=== PATIENT | female | born 1950 ===

== ENCOUNTER 2023-02-27 13:08 | Emergency (ER) | payer MEDICARE ==
[2023-02-27 13:26] VITALS: BP 165/94; PULSE 62; RESP 20; TEMP 98.2
--- NOTE | 2023-02-27 15:22 | ED ---
General Adult HPI - General Chief complaint: Recheck/Abnormal Lab/Rx Stated complaint: foreign object Time Seen by Provider: 02/27/23 14:40 Source: patient, RN notes reviewed, old records reviewed Mode of arrival: ambulatory Limitations: no limitations - History of Present Illness Initial comments: This is a 72-year-old female who presents emergency department stating she attempted to swallow and magnesium pill at 11:00 this morning and it had a difficult time going down. Patient states ever since then she has a sensation anytime she swallows anything of some pain in the little bit of peristalsis in the distal aspect of her esophagus and it eventually subsides. Patient states that she thought the pill dissolve but she doesn't know why she continues to get the sensation. Patient states she is able to drink water and diet Coke without a problem. Patient has yet to attempt food. Patient denies any chest pain. Patient denies any difficulty breathing or shortness of breath. Patient states she's had an issue for quite a while with swallowing big pills. - Related Data Allergies Allergy/AdvReac Type Severity Reaction Status Date / Time clindamycin Allergy Rash/Hives Verified 02/27/23 13:26 Review of Systems ROS Statement: Those systems with pertinent positive or pertinent negative responses have been documented in the HPI. ROS Other: All systems not noted in ROS Statement are negative. Past Medical History Past Medical History: Hypertension Additional Past Medical History / Comment(s): Heart murmur. History of Any Multi-Drug Resistant Organisms: None Reported Past Surgical History: Orthopedic Surgery, Tonsillectomy Additional Past Surgical History / Comment(s): Eye, D & C Past Psychological History: No Psychological Hx Reported Smoking Status: Never smoker Past Alcohol Use History: Occasional Past Drug Use History: None Reported General Exam - General Exam Comments Initial Comments: GENERAL: Patient is well-developed and well-nourished. Patient is nontoxic and well- hydrated and is in mild distress. PULMONARY: Unlabored respirations. Good breath sounds bilaterally. No audible rales rhonchi or wheezing was noted. CARDIOVASCULAR: There is a regular rate and rhythm without any murmurs gallops or rubs. ABDOMEN: Soft and nontender with normal bowel sounds. SKIN: Skin is clear with no lesions or rashes and otherwise unremarkable. NEUROLOGIC: Patient is alert and oriented x3. MUSCULOSKELETAL: Normal extremities with adequate strength and full range of motion. No lower extremity swelling or edema. No calf tenderness. LYMPHATICS: No significant lymphadenopathy is noted PSYCHIATRIC: Normal psychiatric evaluation. Limitations: no limitations Course Vital Signs 02/27/23 13:23 Temperature 98.2 F Pulse Rate 62 Respiratory 20 Rate Blood Pressure 165/94 O2 Sat by Pulse 96 Oximetry Medical Decision Making - Medical Decision Making Was pt. sent in by a medical professional or institution (, SOO, [employer] PLANT HELPER, urgent care, hospital, or correction...) When possible be specific @ -No Did you speak to anyone other than the patient for history (EMS, parent, family, police, friend...)? What history was obtained from this source @ -No Did you review nursing and triage notes (agree or disagree)? Why? @ -I reviewed and agree with nursing and triage notes Were old charts reviewed (outside hosp., previous admission, EMS record, old EKG, old radiological studies, urgent care reports/EKG's, correction records)? Report findings @ -No old charts were reviewed Differential Diagnosis (chest pain, altered mental status, abdominal pain women, abdominal pain men, vaginal bleeding, weakness, fever, dyspnea, syncope, headache, dizziness, GI bleed, back pain, seizure, CVA, palpatations, mental health, musculoskeletal)? @ -not applicable EKG interpreted by me (3pts min.). @ -As above X-rays interpreted by me (1pt min.). @ -None done CT interpreted by me (1pt min.). @ -None done U/S interpreted by me (1pt. min.). @ -None done What testing was considered but not performed or refused? (CT, X-rays, U/S, labs)? Why? @ -None What meds were considered but not given or refused? Why? @ -None Did you discuss the management of the patient with other professionals (professionals i.e. SOO Abdi, ACID PLANT HELPER, lab, RT, psych nurse, child protective services social worker, fbi investigator, teacher, custom protection officer, porter sample case)? Give summary @ -No Was smoking cessation discussed for >3mins.? @ -No Was critical care preformed (if so, how long)? @ -No Were there social determinants of health that impacted care today? How? (Homelessness, low income, unemployed, alcoholism, drug addiction, transportation, low edu. Level, literacy, decrease access to med. care, prison, rehab)? @ -No Was there de-escalation of care discussed even if they declined (Discuss DNR or withdrawal of care, Hospice)? DNR status @ -No What co-morbidities impacted this encounter? (DM, HTN, Smoking, COPD, CAD, Cancer, CVA, ARF, Chemo, Hep., AIDS, mental health diagnosis, sleep apnea, morbid obesity)? @ -None Was patient admitted / discharged? Hospital course, mention meds given and route, prescriptions, significant lab abnormalities, going to OR and other pertinent info. @ -Patient was able to drink liquids and I told that we had no GI and be able to scope her at this time and after we had a lengthy conversation she determined that she would just go home and see how things go and if she needs to show come back at a later date. Undiagnosed new problem with uncertain prognosis? @ -No Drug Therapy requiring intensive monitoring for toxicity (Heparin, Nitro, Insulin, Cardizem)? @ -No Were any procedures done? @ -No Diagnosis/symptom? @ -Globus Hystericus Acute, or Chronic, or Acute on Chronic? @ -Acute Uncomplicated (without systemic symptoms) or Complicated (systemic symptoms)? @ -Uncomplicated Side effects of treatment? @ -No Exacerbation, Progression, or Severe Exacerbation? @ -No Poses a threat to life or bodily function? How? (Chest pain, USA, [place], pneumonia, PE, COPD, DKA, ARF, appy, cholecystitis, CVA, Diverticulitis, Homicidal, Suicidal, threat to staff... and all critical care pts) @ -No Disposition Clinical Impression: Globus sensation Disposition: HOME SELF-CARE Condition: Good Instructions (If sedation given, give patient instructions): Esophageal Foreign Body (ED) Is patient prescribed a controlled substance at d/c from ED?: No Referrals: Addison Mcclure MD [Primary Care Provider] - 1-2 days Time of Disposition: 15:22
== END 2023-02-27 22:07 | disposition home or self-care (01) ==
LOC: EC 13:08
DX: F45.8 Other somatoform disorders (principal); I10 Essential (primary) hypertension; Z88.8 Allergy status to other drugs, medicaments and biological substances
CPT/HCPCS: 99282

== ENCOUNTER 2025-02-02 11:48 | Observation (INO) | payer MEDICARE ==
--- NOTE | 2025-02-02 12:18 | ED ---
General Adult HPI - General Chief complaint: Arrhythmia/Palpitations Stated complaint: Cardiac issue Time Seen by Provider: 02/02/25 11:55 Source: patient, RN notes reviewed, old records reviewed Mode of arrival: ambulatory Limitations: no limitations - History of Present Illness Initial comments: This is a 74-year-old female who presented to the emergency department complaining of palpitations. Patient states she was taken off her beta-travis for high blood pressure couple weeks ago and since then she has episodes where she feels like her heart is racing. Patient states she came in today because it was consistent. Patient denies any chest pain. Patient has difficulty breathing shortness of breath. Patient denies dizziness or lightheadedn ess.Patient denies any recent fever chills or cough. Patient [place] any abdominal pain patient denies any vomiting or diarrhea - Related Data Allergies Allergy/AdvReac Type Severity Reaction Status Date / Time clindamycin Allergy Rash/Hives Verified 02/02/25 11:54 Review of Systems ROS Statement: Those systems with pertinent positive or pertinent negative responses have been documented in the HPI. ROS Other: All systems not noted in ROS Statement are negative. Past Medical History Past Medical History: Hypertension Additional Past Medical History / Comment(s): Heart murmur. History of Any Multi-Drug Resistant Organisms: None Reported Past Surgical History: Orthopedic Surgery, Tonsillectomy Additional Past Surgical History / Comment(s): Eye, D & C Past Psychological History: No Psychological Hx Reported Smoking Status: Never smoker Past Alcohol Use History: Occasional Past Drug Use History: None Reported General Exam - General Exam Comments Initial Comments: GENERAL: Patient is well-developed and well-nourished. Patient is nontoxic and well- hydrated and is in no acute distress. ENT: Neck is soft and supple. No significant lymphadenopathy is noted. Oropharynx is clear. Moist mucous membranes. Neck has full range of motion without eliciting any pain. EYES: The sclera were anicteric and conjunctiva were pink and moist. Extraocular movements were intact and pupils were equal round and reactive to light. Eyelids were unremarkable. PULMONARY: Unlabored respirations. Good breath sounds bilaterally. No audible rales rhonchi or wheezing was noted. CARDIOVASCULAR: Heart rates 170 bpm ABDOMEN: Soft and nontender with normal bowel sounds. SKIN: Skin is clear with no lesions or rashes and otherwise unremarkable. NEUROLOGIC: Patient is alert and oriented x3. Cranial nerves II through XII are grossly intact. Motor and sensory are also intact. Normal speech, volume and content. Symmetrical smile. MUSCULOSKELETAL: Normal extremities with adequate strength and full range of motion. No lower extremity swelling or edema. No calf tenderness. LYMPHATICS: No significant lymphadenopathy is noted PSYCHIATRIC: Normal psychiatric evaluation. Limitations: no limitations Course Vital Signs 02/02/25 02/02/25 02/02/25 11:52 12:10 12:30 Temperature 97.9 F Pulse Rate 170 H 158 H Pulse Rate [ 160 H Bilateral Pulse Oximetery] Respiratory 20 17 Rate Blood Pressure 141/81 139/81 O2 Sat by Pulse 98 98 Oximetry 02/02/25 02/02/25 02/02/25 13:10 13:35 13:55 Temperature Pulse Rate 73 81 79 Pulse Rate [ Bilateral Pulse Oximetery] Respiratory 16 18 18 Rate Blood Pressure 139/81 142/92 132/67 O2 Sat by Pulse 99 99 97 Oximetry Medical Decision Making - Medical Decision Making EKG is interpreted by myself. EKG shows a sinus rhythm as well as atrial flutter at a rate of 140 bpm AR interval 128 QRS is 79 QT interval is 252 QTc is 333. Patient's EKG shows no ST segment elevation or depression. Was pt. sent in by a medical professional or institution (, PA, COFOUNDER, urgent care, hospital, or assisted...) When possible be specific @ -No Did you speak to anyone other than the patient for history (EMS, parent, family, police, friend...)? What history was obtained from this source @ -No Did you review nursing and triage notes (agree or disagree)? Why? @ -I reviewed and agree with nursing and triage notes Were old charts reviewed (outside hosp., previous admission, EMS record, old EKG, old radiological studies, urgent care reports/EKG's, assisted records)? Report findings @ -No old charts were reviewed Differential Diagnosis? @ -Differential Seizure: Differential Palpitations Ventricular arrhythmias, atrial arrhythmias, myocardial infarction, anemia, thyrotoxicosis, electrolyte imbalance, hypokalemia, pulmonary embolism, pulmonary disease, drugs, alcohol, anxiety, stress.... This is not meant to be an all-inclusive list. EKG interpreted by me (3pts min.). @ -As above X-rays interpreted by me (1pt min.). @ -Chest x-ray shows no acute abnormality CT interpreted by me (1pt min.). @ -None done U/S interpreted by me (1pt. min.). @ -None done What testing was considered but not performed or refused? (CT, X-rays, U/S, labs)? Why? @ -None What meds were considered but not given or refused? Why? @ -None Did you discuss the management of the patient with other professionals (professionals i.e. , PA, COFOUNDER, lab, RT, psych nurse, social scientist, safety belt installer, teacher, hazard mitigation officer, casework manager)? Give summary @ -No Was smoking cessation discussed for >3mins.? @ -No Was critical care preformed (if so, how long)? @ -35 minutes Were there social determinants of health that impacted care today? How? (Homelessness, low income, unemployed, alcoholism, drug addiction, transportation, low edu. Level, literacy, decrease access to med. care, nursing home, rehab)? @ -No Was there de-escalation of care discussed even if they declined (Discuss DNR or withdrawal of care, Hospice)? DNR status @ -No What co-morbidities impacted this encounter? (DM, HTN, Smoking, COPD, CAD, Cancer, CVA, ARF, Chemo, Hep., AIDS, mental health diagnosis, sleep apnea, morbid obesity)? @ -None Was patient admitted / discharged? Hospital course, mention meds given and route, prescriptions, significant lab abnormalities, going to OR and other pertinent info. @ -Patient appeared to be in atrial flutter but occasionally going back to a normal sinus rhythm I started the patient on Cardizem after Cardizem bolus and put the patient on heparin she slowed down into the 80s and will be admitted to [facility] with a consult to cardiology Undiagnosed new problem with uncertain prognosis? @ -No Drug Therapy requiring intensive monitoring for toxicity (Heparin, Nitro, Insulin, Cardizem)? @ -No Were any procedures done? @ -No Diagnosis/symptom? @ -Atrial flutter with rapid ventricular response Acute, or Chronic, or Acute on Chronic? @ -Acute Uncomplicated (without systemic symptoms) or Complicated (systemic symptoms)? @ -Complicated Side effects of treatment? @ -No Exacerbation, Progression, or Severe Exacerbation? @ -No Poses a threat to life or bodily function? How? (Chest pain, [place], [place], pneumonia, PE, COPD, DKA, ARF, appy, cholecystitis, CVA, Diverticulitis, Homicidal, Suicidal, threat to staff... and all critical care pts) @ -Yes this can lead to poor perfusion and endorgan dysfunction - Lab Data Result diagrams: 02/02/25 12:24 02/02/25 12:24 Lab Results 02/02/25 02/02/25 02/02/25 Range/Units 12:24 12:24 12:24 WBC 5.33 (4.50-10.00) 10*3/uL RBC 4.95 (4.10-5.20) 10*6/uL Hgb 16.8 H (12.0-15.0) g/dL Hct 47.1 H (37.2-46.3) % MCV 95.2 (80.0-97.0) fL MCH 33.9 H (27.0-32.0) pg MCHC 35.7 (32.0-37.0) g/dL Plt Count 231 (140-440) 10*3/uL MPV 10.1 (9.5-12.2) fL Immature Gran % (Auto) 0.4 % Neutrophils % 52.1 % Lymphocytes % 33.8 % Monocytes % 11.6 % Eosinophils % 1.7 % Basophils % 0.4 % Immature Gran # 0.02 (0.00-0.04) 10*3/uL Neutrophils # 2.78 (1.80-7.70) 10*3/uL Lymphocytes # 1.80 (0.90-5.00) 10*3/uL Monocytes # 0.62 (0.20-1.00) 10*3/uL Eosinophils # 0.09 (0.04-0.35) 10*3/uL Basophils # 0.02 (0.00-0.10) 10*3/uL PT 10.3 (10.0-12.5) sec INR 0.9 (<1.2) APTT 24.2 (22.0-30.0) sec Sodium 140 (137-145) mmol/L Potassium 4.3 (3.5-5.1) mmol/L Chloride 105 (98-107) mmol/L Carbon Dioxide 24 (22-30) mmol/L Anion Gap 11 mmol/L BUN 19 H (7-17) mg/dL Creatinine 0.72 (0.52-1.04) mg/dL Est GFR (CKD-EPI)AfAm >90 (>60 ml/min/1.73 sqM) Est GFR (CKD-EPI)NonAf 84 (>60 ml/min/1.73 sqM) Glucose 109 H (74-99) mg/dL Calcium 9.8 (8.4-10.2) mg/dL Magnesium 1.9 (1.6-2.3) mg/dL Total Bilirubin 0.8 (0.2-1.3) mg/dL AST 27 (14-36) U/L ALT 26 (4-34) U/L Alkaline Phosphatase 92 (38-126) U/L Troponin I (0.000-0.034) ng/mL Total Protein 7.2 (6.3-8.2) g/dL Albumin 4.5 (3.5-5.0) g/dL TSH 0.436 L (0.465-4.680) mIU/L 02/02/25 Range/Units 12:24 WBC (4.50-10.00) 10*3/uL RBC (4.10-5.20) 10*6/uL Hgb (12.0-15.0) g/dL Hct (37.2-46.3) % MCV (80.0-97.0) fL MCH (27.0-32.0) pg MCHC (32.0-37.0) g/dL Plt Count (140-440) 10*3/uL MPV (9.5-12.2) fL Immature Gran % (Auto) % Neutrophils % % Lymphocytes % % Monocytes % % Eosinophils % % Basophils % % Immature Gran # (0.00-0.04) 10*3/uL Neutrophils # (1.80-7.70) 10*3/uL Lymphocytes # (0.90-5.00) 10*3/uL Monocytes # (0.20-1.00) 10*3/uL Eosinophils # (0.04-0.35) 10*3/uL Basophils # (0.00-0.10) 10*3/uL PT (10.0-12.5) sec INR (<1.2) APTT (22.0-30.0) sec Sodium (137-145) mmol/L Potassium (3.5-5.1) mmol/L Chloride (98-107) mmol/L Carbon Dioxide (22-30) mmol/L Anion Gap mmol/L BUN (7-17) mg/dL Creatinine (0.52-1.04) mg/dL Est GFR (CKD-EPI)AfAm (>60 ml/min/1.73 sqM) Est GFR (CKD-EPI)NonAf (>60 ml/min/1.73 sqM) Glucose (74-99) mg/dL Calcium (8.4-10.2) mg/dL Magnesium (1.6-2.3) mg/dL Total Bilirubin (0.2-1.3) mg/dL AST (14-36) U/L ALT (4-34) U/L Alkaline Phosphatase (38-126) U/L Troponin I <0.012 (0.000-0.034) ng/mL Total Protein (6.3-8.2) g/dL Albumin (3.5-5.0) g/dL TSH (0.465-4.680) mIU/L Disposition Clinical Impression: Atrial flutter with rapid ventricular response Disposition: ADMITTED IP TO THIS HOSP Referrals: Addison Mcclure MD [Primary Care Provider] - 1-2 days Time of Disposition: 14:45
[2025-02-02 12:32] LABS: Basophils # (A) 0.02 10*3/uL (0.00-0.10); Basophils % (A) 0.4 %; Eosinophils # (A) 0.09 10*3/uL (0.04-0.35); Eosinophils % (A) 1.7 %; HCT 47.1 % (37.2-46.3); HGB 16.8 g/dL (12.0-15.0); Lymphocytes # (A) 1.80 10*3/uL (0.90-5.00); Lymphocytes % (A) 33.8 %; MCH 33.9 pg (27.0-32.0); MCHC 35.7 g/dL (32.0-37.0); MCV 95.2 fL (80.0-97.0); Monocytes # (A) 0.62 10*3/uL (0.20-1.00); Monocytes % (A) 11.6 %; Neutrophils # (A) 2.78 10*3/uL (1.80-7.70); Neutrophils % (A) 52.1 %; Platelet Count 231 10*3/uL (140-440); RBC 4.95 10*6/uL (4.10-5.20); RDW 12.5 % (11.5-14.5); WBC 5.33 10*3/uL (4.50-10.00)
[2025-02-02] MEDS: SODIUM CHLORIDE 0.9% 500 ML 500 ML IV STA (12:35)
[2025-02-02] MEDS: DILTIAZEM 5 MG/ML 5 ML VIAL IVP STA (12:37)
[2025-02-02 12:43] LABS: Carbon Dioxide 24 mmol/L (22-30); Chloride 105 mmol/L (98-107); Glucose 109 mg/dL (74-99); INR 0.9 (<1.2); Partial Thromboplastin Time 24.2 sec (22.0-30.0); Potassium 4.3 mmol/L (3.5-5.1); Prothrombin Time 10.3 sec (10.0-12.5); Sodium 140 mmol/L (137-145)
[2025-02-02 12:44] LABS: ALT 26 U/L (4-34); AST 27 U/L (14-36); African American GFR (CKD) >90 (>60 ml/min/1.73 sqM); Albumin 4.5 g/dL (3.5-5.0); Alkaline Phosphatase 92 U/L (38-126); Anion Gap 11 mmol/L; Blood Urea Nitrogen 19 mg/dL (7-17); Calcium 9.8 mg/dL (8.4-10.2); Magnesium 1.9 mg/dL (1.6-2.3); Non-African American GFR(CKD) 84 (>60 ml/min/1.73 sqM); Total Protein 7.2 g/dL (6.3-8.2)
[2025-02-02] MEDS: DILTIAZEM 125 MG in DEXTROSE 5% IN WATER 100 ML IV SCH (12:52)
[2025-02-02] MEDS: HEPARIN SODIUM 1,000 UN/ML (10ML VL) IV ONE (13:01)
[2025-02-02] MEDS: HEPARIN SOD,PORK IN 0.45% NACL 25,000 UNIT in 0.45% NACL 1 250ML.BAG IV SCH (13:02)
--- NOTE | 2025-02-02 14:11 | XR ---
EXAMINATION TYPE: XR chest 2V DATE OF EXAM: 02/02/2025 2:03 PM COMPARISON: None TECHNIQUE: XR chest 2V Frontal and lateral views of the chest. CLINICAL INDICATION:Female, 74 years old with history of dysrhythmia; FINDINGS: Lungs/Pleura: There is flattening of the diaphragm with increased lucency of the lungs. No evidence o f pneumothorax, pleural effusion or focal consolidation. Pulmonary vascularity: Unremarkable. Heart/mediastinum: Cardiomediastinal silhouette is unremarkable. Atherosclerotic calcifications are seen in the aorta. Musculoskeletal: Multiple level degenerative disc disease changes seen throughout the spine. IMPRESSION: No acute cardiopulmonary disease/process. [facility], , 02/02/2025 2:09 PM
[2025-02-02] MEDS ORDERED: NITROGLYCERIN SL TABS 0.4 MG TAB SUBLINGUAL PRN (14:46)
[2025-02-03 07:35] VITALS: TEMP 97.2
[2025-02-03] MEDS ORDERED: ARTIFICIAL TEARS-HYPROMELLOSE DROPS 15 ML BTL BOTH EYES PRN (08:07)
[2025-02-03] MEDS ORDERED: OXYBUTYNIN TRANSDERM SCH (08:15)
[2025-02-03] MEDS ORDERED: ASPIRIN 325 MG TAB PO SCH (09:00)
[2025-02-03] MEDS ORDERED: APIXABAN 5 MG TAB PO SCH (09:00)
[2025-02-03] MEDS: ASPIRIN 81 MG PO SCH (09:40)
[2025-02-03] MEDS: METOPROLOL SUCCINATE (ER) 50 MG TAB.ER.24H PO SCH (09:40)
[2025-02-03] MEDS: ATORVASTATIN 40 MG TAB PO SCH (09:40)
[2025-02-03] MEDS: LISINOPRIL-HCTZ 20-12.5 MG 1 EACH TAB PO SCH (09:40)
[2025-02-03] MEDS: LORATADINE 10 MG TAB PO SCH (09:40)
[2025-02-03] MEDS: MULTIVITAMINS, THERA 1 EACH TAB PO SCH (09:41)
[2025-02-03] MEDS: SERTRALINE 100 MG TAB PO SCH (09:41)
[2025-02-03] MEDS: ZINC SULFATE 220 MG CAP PO SCH (09:41)
[2025-02-03] MEDS: PANTOPRAZOLE 40 MG TABLET PO SCH (09:41)
[2025-02-03] MEDS: FLUTICASONE NASAL 50MCG/SPRAY 16GM BTL EA NOSTRIL SCH (09:43)
[2025-02-03] MEDS: cycloSPORINE 0.05% OPHTH 0.4 ML DROPERETTE BOTH EYES SCH (09:43)
[2025-02-03] MEDS: ARTIFICIAL TEARS-HYPROMELLOSE DROPS 15 ML BTL BOTH EYES SCH (09:44)
--- NOTE | 2025-02-03 10:34 | P.CRDCN ---
History of Present Illness Consult date: 02/03/25 Reason for Consult (text): Atrial flutter with RVR History of present illness: This is a 74-year-old female but does not follow with a waistline joiner with past medical history of hypertension, GERD, dyslipidemia. We have been asked to evaluate the patient for atrial flutter with RVR. Patient states that she saw a waistline joiner many years ago but does not follow with anyone recently. She states she has had history of palpitations for a number of decades. She was on Inderal for migraine headaches and this also helped her heart rate. In her 50s her blood pressure was high and her doctor changed her to atenolol. Subsequently to that and more recently she had high blood pressure and she was taken off the atenolol and started on lisinopril hydrochlorothiazide and about 3 days later her heart rate started going fast. She had an appointment at her doctor's office yesterday but decided to come into the emergency center instead. She denies lightheadedness or dizziness no syncopal episodes. She states she feels slightly shaky. She has rare alcohol intake. Patient was found to be in A-fib with RVR and subsequently converted to sinus rhythm. Blood pressure 115/61, heart rate 74, pulse ox 98% on room air. Patient has been afebrile. Patient has been started on a heparin drip and Cardizem drip at 5 mg per hour. Patient is seen today in the emergency center waiting for a bed on the cardiac stepdown unit. -EKG: Atrial fibrillation 140 bpm, #2 sinus rhythm -Chest x-ray: No acute cardiopulmonary disease process. -Laboratory studies: WBC 5.3, hemoglobin is 16.8. Troponin negative x 3. TSH 0.436 and free T4 normal at 1.25. BUN 19, creatinine 0.72, potassium 4.3 and magnesium 1.9. -Home cardiac medications: Lisinopril hydrochlorothiazide 20-12.5 mg 1 tablet daily, magnesium 200 mg at bedtime, omega-3, also on Ozempic. Review Of Systems: At the time of my exam: CONSTITUTIONAL: Denies fever or chills. HEENT: Denies blurred vision, vision changes, or eye pain. Denies hemoptysis CARDIOVASCULAR: Denies chest pain. Denies orthopnea. Denies PND. Denies palpitations RESPIRATORY: Denies shortness of breath. GASTROINTESTINAL: Denies abdominal pain. Denies nausea or vomiting. HEMATOLOGIC: Denies bleeding disorders. GENITOURINARY: Denies any blood in urine. SKIN: Denies puritis. Denies rash. Physical examination: Gen: This is 74-year-old female in no acute distress VS: reviewed HEENT: Head is atraumatic, normocephalic. Pupils equal, round. Sclerae is anicteric. NECK: Supple. No JVD. LUNGS: Clear to auscultation. No wheezes or rhonchi. No intercostal retractions. HEART: Regular rate and rhythm. Systolic murmur. ABDOMEN: Soft No tenderness. EXTREMITIES: No pedal edema. No calf tenderness. NEUROLOGICAL: Patient is awake, alert and oriented x3. Assessment: Paroxysmal atrial fibrillation with RVR converted to sinus rhythm Hypertension GERD Dyslipidemia Plan: Resume patient's home cardiac medications Start patient on Toprol XL 50 mg daily Obtain 2-D echocardiogram and Doppler study to assess cardiac structure and function Further recommendations to follow based upon clinical course If blood pressure is well-controlled this afternoon, patient is cleared for discharge and will follow-up with Dr. Santiago in the office in 1 to 2 weeks. Thank you kindly for this consultation. Nurse practitioner note has been reviewed, I agree with documented findings and plan of care. Patient was seen and examined. Past Medical History Past Medical History: Hypertension Additional Past Medical History / Comment(s): Heart murmur. History of Any Multi-Drug Resistant Organisms: None Reported Past Surgical History: Orthopedic Surgery, Tonsillectomy Additional Past Surgical History / Comment(s): Eye, D & C Past Psychological History: No Psychological Hx Reported Smoking Status: Never smoker Past Alcohol Use History: Occasional Past Drug Use History: None Reported Medications and Allergies Home Medications Medication Instructions Recorded Confirmed Type 5-Hydroxytryptophan (5-Htp) [5-Htp] 100 mg PO HS 02/02/25 02/02/25 History Acetaminophen Tab [Tylenol Tab] 1,000 mg PO Q6HR PRN 02/02/25 02/02/25 History Ascorbic Acid [Vitamin C] 500 mg PO BID 02/02/25 02/02/25 History Biotin W/Keratin 10,000mg 1 tab PO DAILY 02/02/25 02/02/25 History Carboxymethylcellulose Sodium 1 drop BOTH EYES DAILY 02/02/25 02/02/25 History [Refresh Tears] Carboxymethylcellulose Sodium 1 drop BOTH EYES QID PRN 02/02/25 02/02/25 History [Refresh Tears] Cyanocobalamin (Vitamin B-12) 1,000 mcg PO DAILY 02/02/25 02/02/25 History [Vitamin B-12] Estradiol/Norethindrone Acet 1 tab PO DAILY 02/02/25 02/02/25 History [Activella 1 mg-0.5 mg Tablet] Fexofenadine HCl [Zoe Allergy] 180 mg PO DAILY 02/02/25 02/02/25 History Fluticasone Nasal [place] [Flonase 1 spray EA NOSTRIL DAILY 02/02/25 02/02/25 History Nasal [place]] Glucosam/Ar-Msm1/C/Carlos/Bosw 1 tab PO BID 02/02/25 02/02/25 History [Glucosamine-Chondroitin Tablet] Lisinopril-Hctz 20-12.5 mg 1 tab PO DAILY 02/02/25 02/02/25 History [Zestoretic 20-12.5] Magnesium 200 mg PO HS 02/02/25 02/02/25 History Montelukast [Singulair] 10 mg PO HS 02/02/25 02/02/25 History Multivitamins, Thera [Multivitamin 1 tab PO DAILY 02/02/25 02/02/25 History (formulary)] Niacin 500 mg PO HS 02/02/25 02/02/25 History [place]-3/Dha/Epa/Fish Oil [Fish Oil 1 cap PO DAILY 02/02/25 02/02/25 History 500 mg Softgel] Omeprazole [PriLOSEC] 40 mg PO BID 02/02/25 02/02/25 History Oxybutynin [Oxytrol For Women] 1 patch TRANSDERM Q96H 02/02/25 02/02/25 History Ozempic (Unknown Dose) 1 dose SQ TH 02/02/25 02/02/25 History Prasterone (Dhea) [Dhea] 50 mg PO DAILY 02/02/25 02/02/25 History Psyllium Husk [Metamucil] 0.4 gm PO DAILY 02/02/25 02/02/25 History Rizatriptan Benzoate 10 mg PO DAILY PRN 02/02/25 02/02/25 History Sertraline [Zoloft] 100 mg PO DAILY 02/02/25 02/02/25 History Turmeric Root Extract [Turmeric] 500 mg PO DAILY 02/02/25 02/02/25 History Vitamin D3 125mcg + K2 90mcg 1 tab PO DAILY 02/02/25 02/02/25 History Zinc Gluconate [Zinc] 50 mg PO DAILY 02/02/25 02/02/25 History cycloSPORINE 0.05% OPHTH SOLN 1 applicator BOTH EYES BID 02/02/25 02/02/25 History [Restasis] Allergies Allergy/AdvReac Type Severity Reaction Status Date / Time clindamycin Allergy Rash/Hives Verified 02/02/25 15:25 Physical Exam Vitals: Vital Signs Temp Pulse Pulse Resp BP Pulse Ox 02/03/25 07:33 97.2 F L 74 20 115/61 98 02/03/25 06:23 80 18 119/78 95 02/03/25 04:02 71 18 114/71 98 02/03/25 00:00 77 16 115/67 96 02/02/25 20:41 86 18 99/65 02/02/25 19:16 113 H 18 100/67 97 02/02/25 13:55 79 18 132/67 97 02/02/25 13:35 81 18 142/92 99 02/02/25 13:10 73 16 139/81 99 02/02/25 12:30 160 H 02/02/25 12:10 158 H 17 139/81 98 02/02/25 11:52 97.9 F 170 H 20 141/81 98 Results 02/02/25 12:24 02/02/25 12:24 Cardiac Enzymes 02/02/25 02/02/25 02/02/25 Range/Units 12:24 12:24 15:37 AST 27 (14-36) U/L Troponin I <0.012 <0.012 (0.000-0.034) ng/mL 02/02/25 Range/Units 18:50 AST (14-36) U/L Troponin I <0.012 (0.000-0.034) ng/mL Coagulation 02/02/25 02/02/25 Range/Units 12:24 18:50 PT 10.3 (10.0-12.5) sec APTT 24.2 60.8 H (22.0-30.0) sec CBC 02/02/25 Range/Units 12:24 WBC 5.33 (4.50-10.00) 10*3/uL RBC 4.95 (4.10-5.20) 10*6/uL Hgb 16.8 H (12.0-15.0) g/dL Hct 47.1 H (37.2-46.3) % Plt Count 231 (140-440) 10*3/uL Comprehensive Metabolic Panel 02/02/25 Range/Units 12:24 Sodium 140 (137-145) mmol/L Potassium 4.3 (3.5-5.1) mmol/L Chloride 105 (98-107) mmol/L Carbon Dioxide 24 (22-30) mmol/L BUN 19 H (7-17) mg/dL Creatinine 0.72 (0.52-1.04) mg/dL Glucose 109 H (74-99) mg/dL Calcium 9.8 (8.4-10.2) mg/dL AST 27 (14-36) U/L ALT 26 (4-34) U/L Alkaline Phosphatase 92 (38-126) U/L Total Protein 7.2 (6.3-8.2) g/dL Albumin 4.5 (3.5-5.0) g/dL Current Medications Generic Name Dose Route Start Last Admin Trade Name Freq PRN Reason Stop Dose Admin Aspirin 325 mg 02/03/25 09:00 Aspirin 325 Mg Tab PO DAILY RED Diltiazem HCl 125 mg/ Dextrose 125 mls @ 5 mls/hr 02/02/25 12:15 02/02/25 12:52 /Water IV 5 mg/hr .Q24H RED 5 mls/hr Administration Protocol 5 MG/HR Heparin Sodium/Sodium Chloride 250 mls @ 10.342 mls/hr 02/02/25 12:15 02/02/25 13:02 25,000 unit/ Sodium Chloride IV 11.6 units/kg/hr .Q24H RED 10 mls/hr Administration Protocol 12 UNITS/KG/HR Nitroglycerin 0.4 mg 02/02/25 14:46 Nitroglycerin Sl Tabs 0.4 Mg Tab SUBLINGUAL Q5M PRN Chest Pain 02/02/25 12:24 02/02/25 12:24
[2025-02-03 10:51] LABS: Cholesterol 199.00 mg/dL (0.00-200.00); HDL Cholesterol 38.20 mg/dL (40.00-60.00); LDL Cholesterol,Calculated 137.4 mg/dL (0.0-131.0); Triglycerides 117.00 mg/dL (0.00-149.00); VLDL Calculation 23.40 mg/dL (5.00-40.00)
--- NOTE | 2025-02-03 14:56 | P.HPIM ---
History of Present Illness H&P Date: 02/03/25 Patient initially admitted under [facility] hospitalist group on 02/02/2025 at 2:46 p.m., patient was not seen by their hospitalist group and we were notified of admission being changed to our services on 02/03/2025 at 7:39 AM. History of Presenting Illness: Patient is a very pleasant 74-year-old female with a past medical history of hypertension, hyperlipidemia, migraine headaches and history of "fast heartbeat" previously on atenolol. Patient reports she does not follow with a drawbridge tender, states she was seen by one almost 30 years ago for her rapid heart rate which resolved after stopping caffeine intake and being placed on atenolol which helped both with her tachycardia, hypertension and migraines. Patient reports she was recently struggling with uncontrolled hypertension and her PCP weaned her off of atenolol and started her on lisinopril/hydrochlorothiazide. She reports having significant improvement in her blood pressures but states she has been having episodes of palpitations. She reports initially palpitations were intermittent but reports yesterday palpitations became consistent and her heart was racing. 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 Patient denies having any associated symptoms including headache, lightheadedness, dizziness, diaphoresis, chest pain, shortness of breath, cough or congestion, nausea or vomiting, or experiencing any numbness/tingling/weakness/swelling in her extremities. She denies history of DVT or PE. Upon arrival to our facility, patient underwent evaluation in the ER. Vital signs upon arrival show blood pressure 141/81, heart rate 170, respiratory rate 20, temp 97.9 F, SpO2 of 98% on room air. EKG was completed showing atrial fibrillation with RVR to 140 bpm. Chest x-ray completed negative for acute cardiopulmonary process. Labs completed and reviewed. CBC showing elevated hemoglobin of 16.8, hematocrit of 47.1, and MCH of 33.9. Coagulation profile was normal findings. BMP showing mild prerenal azotemia with BUN of 19 otherwise normal findings. Blood glucose was 109. Calcium 9.8. Magnesium 1.9. Liver profile unremarkable. Troponin was negative at less than 0.012. TSH was low at 0.436 with a normal free T4 of 1.25. Patient was started on low intensity heparin infusion for anticoagulation and given Cardizem bolus followed by infusion. Troponins were trended all negative at less than 0.012 x 3 draws. We were notified of patient's admission under our services on 02/03/2025 at 7:39 AM. Repeat morning EKG showing patient converted to normal sinus rhythm at 71 bpm with no significant T wave or ST abnormalities showing no signs of acute ischemia upon personal review and interpretation. Review of systems: Pertinent positives and negatives as discussed in HPI, a complete review of systems was performed and all other systems are negative. Physical exam: Vital signs reviewed and stable. General: Nontoxic, no distress and appears stated age. Derm: Skin warm and dry, normal coloration for ethnicity. Head: Atraumatic, normocephalic and symmetric. Eyes: EOM's intact, no lid lag, and anicteric sclera Mouth: no lip lesions, mucus membranes moist Cardiovascular: regular rate and rhythm with normal S1S2, soft systolic murmur, positive posterior tibial pulses bilaterally, and cap refill < 2 seconds. Lungs: Respirations even, regular, and unlabored on room air. Lungs CTA bilaterally, no rhonchi, no rales, no wheezing, and no accessory muscle usage. Abdominal: soft, nontender to palpation, no guarding, no appreciable organomegaly Ext: ROM intact. No gross muscle atrophy, no edema, no contractures Neuro: Speech clear, face symmetrical and CN II-XII grossly intact with no noted focal neuro deficits Psych: Alert and oriented to person, place, time, and situation. Appropriate and pleasant affect. Assessment and Plan of Care: Atrial fibrillation with RVR History of palpitations and sinus tachycardia Hypertension Hyperlipidemia -Atrial fibrillation with RVR is paroxysmal as patient has converted to normal sinus mechanism. -Cardiology consulted, discussed plan of care with cardiac PSYCHIATRIC ASSISTANT. Patient to be started on metoprolol and echocardiogram to be completed. -Continue low intensity heparin infusion with goal therapeutic range of 45 to 79 seconds. PTT currently therapeutic at 60.8. -Telemetry monitoring -Troponins negative at less than 0.012 x 3 draws. -Aspirin 81 mg daily, atorvastatin 40 mg daily, lisinopril/hydrochlorothiazide 20/12.5 mg daily, and metoprolol succinate 50 mg daily. -Lipid profile showing elevated LDL of 137.4 and low HDL of 38.20. -Echocardiogram to be completed Migraine headaches Patient to continue daily medication regimen with 5-Hydroxytryptophan 100 mg nightly and rizatriptan benzoate 10 mg daily as needed for breakthrough migrain e. Data and imaging reviewed: As stated above in HPI The patient is admitted with an anticipated less than 2 midnight stay for evaluation of new onset atrial fibrillation with RVR CODE STATUS: Full code DVT prophylaxis: Low intensity heparin infusion Discussed with: Patient, RN, and cardiology PSYCHIATRIC ASSISTANT Anticipated discharge date: Pending completion of echocardiogram Anticipated discharge place: Home Patient was seen independently by Nurse Practitioner. This document was prepared using [email or web address] dictation software. Please allow for errors in cable television installer while rare they do occur. Erik Carroll NP rendered care for this patient independently, reviewed the findings and plan as documented in the note above and agree with plan. I did not physically speak with or examine the patient on this date. Past Medical History Past Medical History: Hypertension Additional Past Medical History / Comment(s): Heart murmur. History of Any Multi-Drug Resistant Organisms: None Reported Past Surgical History: Orthopedic Surgery, Tonsillectomy Additional Past Surgical History / Comment(s): Eye, D & C Past Psychological History: No Psychological Hx Reported Smoking Status: Never smoker Past Alcohol Use History: Occasional Past Drug Use History: None Reported Medications and Allergies Home Medications Medication Instructions Recorded Confirmed Type 5-Hydroxytryptophan (5-Htp) [5-Htp] 100 mg PO HS 02/02/25 02/02/25 History Acetaminophen Tab [Tylenol Tab] 1,000 mg PO Q6HR PRN 02/02/25 02/02/25 History Ascorbic Acid [Vitamin C] 500 mg PO BID 02/02/25 02/02/25 History Biotin W/Keratin 10,000mg 1 tab PO DAILY 02/02/25 02/02/25 History Carboxymethylcellulose Sodium 1 drop BOTH EYES DAILY 02/02/25 02/02/25 History [Refresh Tears] Carboxymethylcellulose Sodium 1 drop BOTH EYES QID PRN 02/02/25 02/02/25 History [Refresh Tears] Cyanocobalamin (Vitamin B-12) 1,000 mcg PO DAILY 02/02/25 02/02/25 History [Vitamin B-12] Estradiol/Norethindrone Acet 1 tab PO DAILY 02/02/25 02/02/25 History [Activella 1 mg-0.5 mg Tablet] Fexofenadine HCl [Zoe Allergy] 180 mg PO DAILY 02/02/25 02/02/25 History Fluticasone Nasal [place] [Flonase 1 spray EA NOSTRIL DAILY 02/02/25 02/02/25 Hi story Nasal [place]] Glucosam/Ar-Msm1/C/Carlos/Bosw 1 tab PO BID 02/02/25 02/02/25 History [Glucosamine-Chondroitin Tablet] Lisinopril-Hctz 20-12.5 mg 1 tab PO DAILY 02/02/25 02/02/25 History [Zestoretic 20-12.5] Magnesium 200 mg PO HS 02/02/25 02/02/25 History Montelukast [Singulair] 10 mg PO HS 02/02/25 02/02/25 History Multivitamins, Thera [Multivitamin 1 tab PO DAILY 02/02/25 02/02/25 History (formulary)] Niacin 500 mg PO HS 02/02/25 02/02/25 History [place]-3/Dha/Epa/Fish Oil [Fish Oil 1 cap PO DAILY 02/02/25 02/02/25 History 500 mg Softgel] Omeprazole [PriLOSEC] 40 mg PO BID 02/02/25 02/02/25 History Oxybutynin [Oxytrol For Women] 1 patch TRANSDERM Q96H 02/02/25 02/02/25 History Ozempic (Unknown Dose) 1 dose SQ TH 02/02/25 02/02/25 History Prasterone (Dhea) [Dhea] 50 mg PO DAILY 02/02/25 02/02/25 History Psyllium Husk [Metamucil] 0.4 gm PO DAILY 02/02/25 02/02/25 History Rizatriptan Benzoate 10 mg PO DAILY PRN 02/02/25 02/02/25 History Sertraline [Zoloft] 100 mg PO DAILY 02/02/25 02/02/25 History Turmeric Root Extract [Turmeric] 500 mg PO DAILY 02/02/25 02/02/25 History Vitamin D3 125mcg + K2 90mcg 1 tab PO DAILY 02/02/25 02/02/25 History Zinc Gluconate [Zinc] 50 mg PO DAILY 07/01/25 07/01/25 History cycloSPORINE 0.05% OPHTH SOLN 1 applicator BOTH EYES BID 02/02/25 02/02/25 History [Restasis] Allergies Allergy/AdvReac Type Severity Reaction Status Date / Time clindamycin Allergy Rash/Hives Verified 02/02/25 15:25 Physical Exam Vitals: Vital Signs Temp Pulse Pulse Resp BP Pulse Ox 02/03/25 07:33 97.2 F L 74 20 115/61 98 02/03/25 06:23 80 18 119/78 95 02/03/25 04:02 71 18 114/71 98 02/03/25 00:00 77 16 115/67 96 02/02/25 20:41 86 18 99/65 02/02/25 19:16 113 H 18 100/67 97 02/02/25 13:55 79 18 132/67 97 02/02/25 13:35 81 18 142/92 99 02/02/25 13:10 73 16 139/81 99 02/02/25 12:30 160 H 02/02/25 12:10 158 H 17 139/81 98 02/02/25 11:52 97.9 F 170 H 20 141/81 98 Results CBC & Chem 7: 02/02/25 12:24 02/02/25 12:24 Labs: Abnormal Lab Results - Last 24 Hours (Table) 02/02/25 02/02/25 02/02/25 Range/Units 12:24 12:24 18:50 Hgb 16.8 H (12.0-15.0) g/dL Hct 47.1 H (37.2-46.3) % MCH 33.9 H (27.0-32.0) pg APTT 60.8 H (22.0-30.0) sec BUN 19 H (7-17) mg/dL Glucose 109 H (74-99) mg/dL TSH 0.436 L (0.465-4.680) mIU/L
[2025-02-03] MEDS: MONTELUKAST 10 MG TAB PO SCH (20:33)
[2025-02-03] MEDS: HYDROXYTRYPTOPHAN 100 MG PO SCH (20:34)
[2025-02-03] MEDS: NIACIN TR 500 MG CAPLET PO SCH (21:19)
[2025-02-04 04:23] VITALS: RESP 18
[2025-02-04] MEDS: METOPROLOL SUCCINATE (ER) 50 MG TAB.ER.24H PO SCH (09:15)
[2025-02-04] MEDS: LISINOPRIL-HCTZ 20-12.5 MG 1 EACH TAB PO SCH (09:18)
[2025-02-04] MEDS: APIXABAN 5 MG TAB PO SCH (09:19)
[2025-02-04 09:59] VITALS: BP 117/80; PULSE 91
--- NOTE | 2025-02-04 10:10 | P.PN ---
Subjective Progress Note Date: 02/04/25 Reason for Consult (text): Atrial flutter with RVR History of present illness: This is a 74-year-old female but does not follow with a automation machine builder with past medical history of hypertension, GERD, dyslipidemia. We have been asked to evaluate the patient for atrial flutter with RVR. Patient states that she saw a automation machine builder many years ago but does not follow with anyone recently. She states she has had history of palpitations for a number of decades. She was on Inderal for migraine headaches and this also helped her heart rate. In her 50s her blood pressure was high and her doctor changed her to atenolol. Subsequently to that and more recently she had high blood pressure and she was taken off the atenolol and started on lisinopril hydrochlorothiazide and about 3 days later her heart rate started going fast. She had an appointment at her doctor's office yesterday but decided to come into the emergency center instead. She denies lightheadedness or dizziness no syncopal episodes. She states she feels slightly shaky. She has rare alcohol intake. Patient was found to be in A-fib with RVR and subsequently converted to sinus rhythm. Blood pressure 115/61, heart rate 74, pulse ox 98% on room air. Patient has been afebrile. Patient has been started on a heparin drip and Cardizem drip at 5 mg per hour. Patient is seen today in the emergency center waiting for a bed on the cardiac stepdown unit. -EKG: Atrial fibrillation 140 bpm, #2 sinus rhythm -Chest x-ray: No acute cardiopulmonary disease process. -Laboratory studies: WBC 5.3, hemoglobin is 16.8. Troponin negative x 3. TSH 0.436 and free T4 normal at 1.25. BUN 19, creatinine 0.72, potassium 4.3 and magnesium 1.9. -Home cardiac medications: Lisinopril hydrochlorothiazide 20-12.5 mg 1 tablet daily, magnesium 200 mg at bedtime, omega-3, also on Ozempic. 02/04/2025 Patient seen and examined in the emergency center still waiting for a bed on the cardiac stepdown unit. Patient has been maintained on heparin drip. She feels like she is having episodes of fast heart rate but currently heart rate is controlled and she is in a sinus rhythm. She is currently on Toprol XL 50 mg daily. Echocardiogram is still pending which we will cancel. Discussed options with the patient and she is agreeable to go home and follow-up in the office with Dr. Santiago for echocardiogram. Physical examination: Gen: This is 74-year-old female in no acute distress VS: reviewed HEENT: Head is atraumatic, normocephalic. Pupils equal, round. Sclerae is anicteric. NECK: Supple. No JVD. LUNGS: Clear to auscultation. No wheezes or rhonchi. No intercostal retractions. HEART: Regular rate and rhythm. Systolic murmur. ABDOMEN: Soft No tenderness. EXTREMITIES: No pedal edema. No calf tenderness. NEUROLOGICAL: Patient is awake, alert and oriented x3. Assessment: Paroxysmal atrial fibrillation with RVR converted to sinus rhythm Hypertension GERD Dyslipidemia Plan: Continue patient's home cardiac medications Increase Toprol XL 75 mg daily Cancel 2-D echocardiogram. This will be done in the office. Transition IV heparin to Eliquis 5 mg twice daily Patient is cleared for discharge and will follow-up with Dr. Santiago in the office in 1 to 2 weeks. Thank you kindly for this consultation. Nurse practitioner note has been reviewed, I agree with documented findings and plan of care. Patient was seen and examined. Objective - Vital Signs Vital signs: Vital Signs Temp 97.2 F L 02/03/25 07:33 Pulse 91 02/04/25 09:58 Resp 18 02/04/25 09:58 BP 117/80 02/04/25 09:58 Pulse Ox 98 02/04/25 09:58 FiO2 Intake & Output 02/03/25 02/04/25 02/04/25 18:59 06:59 18:59 Intake Total 240.667 Balance 240.667 Intake: Intake, IV Titration 240.667 Amount Heparin Sod,Pork in 0.45% 240.667 NaCl 25,000 unit In 0.45 % NaCl 1 250ml.bag @ 12 UNITS/KG/HR 10.342 mls/hr IV .Q24H [facility] Rx#: [id number] - Labs CBC & Chem 7: 02/02/25 12:24 02/02/25 12:24 Labs: Abnormal Lab Results - Last 24 Hours (Table) 02/03/25 02/03/25 Range/Units 07:21 18:49 APTT 50.4 H (22.0-30.0) sec LDL Cholesterol, Calc 137.4 H (0.0-131.0) mg/dL HDL Cholesterol 38.20 L (40.00-60.00) mg/dL
--- NOTE | 2025-02-04 13:46 | P.DS ---
Providers Date of admission: 02/02/25 14:48 Expected date of discharge: 02/04/25 Attending physician: Grady Keys Consults: 02/02/25 14:46 Consult Physician Urgent Consulting Provider: [facility] Consult Reason/Comments: Atrial flutter with rapid ventricular response Do you want consulting provider notified?: Yes Primary care physician: Addison Mcclure Hospital Course: Discharge Diagnosis: Atrial fibrillation with RVR. Patient converted to sinus mechanism. Patient being discharged home on metoprolol succinate 75 mg daily, Eliquis 5 mg twice daily, and atorvastatin 40 mg daily. Patient was evaluated by cardiology recommending outpatient follow-up in their office in 1 week for completion of outpatient echocardiogram. History of palpitations and sinus tachycardia. Hypertension Hyperlipidemia Migraine headaches. Patient to continue daily medication regimen with 5- Hydroxytryptophan 100 mg nightly and rizatriptan benzoate 10 mg daily as needed for breakthrough migraine. Hospital Course: Patient is a very pleasant 74-year-old female with a past medical history of hypertension, hyperlipidemia, migraine headaches and history of "fast heartbeat" previously on atenolol. Patient reports she does not follow with a sewage plant supervisor, states she was seen by one almost 30 years ago for her rapid heart rate which resolved after stopping caffeine intake and being placed on atenolol which helped both with her tachycardia, hypertension and migraines. Patient reports she was recently struggling with uncontrolled hypertension and her PCP weaned her off of atenolol and started her on lisinopril/hydrochlorothiazide. She reports having significant improvement in her blood pressures but states she has been having episodes of palpitations. She reports initially palpitations were intermittent but reports yesterday palpitations became consistent and her heart was racing. 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 Patient denies having any associated symptoms including headache, lightheadedness, dizziness, diaphoresis, chest pain, shortness of breath, cough or congestion, nausea or vomiting, or experiencing any numbness/tingling/weakness/swelling in her extremities. She denies history of DVT or PE. Upon arrival to our facility, patient underwent evaluation in the ER. Vital signs upon arrival show blood pressure 141/81, heart rate 170, respiratory rate 20, temp 97.9 F, SpO2 of 98% on room air. EKG was completed showing atrial fibrillation with RVR to 140 bpm. Chest x-ray completed negative for acute cardiopulmonary process. Labs completed and reviewed. CBC showing elevated hemoglobin of 16.8, hematocrit of 47.1, and MCH of 33.9. Coagulation profile was normal findings. BMP showing mild prerenal azotemia with BUN of 19 otherwise normal findings. Blood glucose was 109. Calcium 9.8. Magnesium 1.9. Liver profile unremarkable. Troponin was negative at less than 0.012. TSH was low at 0.436 with a normal free T4 of 1.25. Patient was started on low intensity heparin infusion for anticoagulation and given Cardizem bolus followed by infusion. Troponins were trended all negative at less than 0.012 x 3 draws. We were notified of patient's admission under our services on 02/03/2025 at 7:39 AM. Repeat morning EKG showing patient converted to normal sinus rhythm at 71 bpm with no significant T wave or ST abnormalities showing no signs of acute ischemia upon personal review and interpretation. Patient converted to sinus mechanism and remained free from any complaints at this time. Patient being discharged home on metoprolol succinate 75 mg daily, Eliquis 5 mg twice daily, and atorvastatin 40 mg daily. Patient was evaluated by cardiology recommending outpatient follow-up in their office in 1 week for completion of outpatient echocardiogram. Physical exam: Vital signs reviewed and stable. General: Nontoxic, no distress and appears stated age. Derm: Skin warm and dry, normal coloration for ethnicity. Head: Atraumatic, normocephalic and symmetric. Eyes: EOM's intact, no lid lag, and anicteric sclera Mouth: no lip lesions, mucus membranes moist Cardiovascular: regular rate and rhythm with normal S1S2, soft systolic murmur, positive posterior tibial pulses bilaterally, and cap refill < 2 seconds. Lungs: Respirations even, regular, and unlabored on room air. Lungs CTA bilaterally, no rhonchi, no rales, no wheezing, and no accessory muscle usage. Abdominal: soft, nontender to palpation, no guarding, no appreciable organomegaly Ext: ROM intact. No gross muscle atrophy, no edema, no contractures Neuro: Speech clear, face symmetrical and CN II-XII grossly intact with no noted focal neuro deficits Psych: Alert and oriented to person, place, time, and situation. Appropriate and pleasant affect. A total of 31 minutes of time were spent preparing this complex discharge summary. Pt was discharged on 02/04/2025 at 8:59 AM Patient was seen independently by Nurse Practitioner. This document was prepared using [employer] dictation software. Please allow for errors in plastics repairer while rare they do occur. Erik Carroll NP rendered care for this patient independently, reviewed the findings and plan as documented in the note above. I did not physically speak with or examine the patient on this date. Patient Condition at Discharge: Stable Plan - Discharge Summary New Discharge Prescriptions: New Apixaban [Eliquis] 5 mg PO BID 30 Days #60 tab Atorvastatin [Lipitor] 40 mg PO DAILY 30 Days #30 tab Metoprolol Succinate (ER) [Toprol XL] 75 mg PO DAILY 30 Days #30 tab Continue Acetaminophen Tab [Tylenol] 1,000 mg PO Q6HR PRN PRN Reason: Pain Glucosam/Ar-Msm1/C/Carlos/Bosw [Glucosamine-Chondroitin Tablet] 1 tab PO BID Zinc Gluconate [Zinc] 50 mg PO DAILY Psyllium Husk [Metamucil] 0.4 gm PO DAILY Cyanocobalamin (Vitamin B-12) [Vitamin B-12] 1,000 mcg PO DAILY Multivitamins, Thera [Multivitamin (formulary)] 1 tab PO DAILY Fexofenadine HCl [Zoe Allergy] 180 mg PO DAILY Ascorbic Acid [Vitamin C] 500 mg PO BID 5-Hydroxytryptophan (5-Htp) [5-Htp] 100 mg PO HS [place]-3/Dha/Epa/Fish Oil [Fish Oil 500 mg Softgel] 1 cap PO DAILY Biotin W/Keratin 10,000mg 1 tab PO DAILY Carboxymethylcellulose Sodium [Refresh Tears] 1 drop BOTH EYES QID PRN PRN Reason: Dry Eye(S) Carboxymethylcellulose Sodium [Refresh Tears] 1 drop BOTH EYES DAILY Rizatriptan Benzoate 10 mg PO DAILY PRN PRN Reason: Migraine Headache Sertraline [Zoloft] 100 mg PO DAILY Lisinopril-Hctz 20-12.5 mg [Zestoretic 20-12.5] 1 tab PO DAILY Turmeric Root Extract [Turmeric] 500 mg PO DAILY Magnesium 200 mg PO HS Prasterone (Dhea) [Dhea] 50 mg PO DAILY Oxybutynin [Oxytrol For Women] 1 patch TRANSDERM Q96H Fluticasone Nasal [place] [Flonase Nasal [place]] 1 spray EA NOSTRIL DAILY Vitamin D3 125mcg + K2 90mcg 1 tab PO DAILY cycloSPORINE 0.05% OPHTH SOLN [Restasis] 1 applicator BOTH EYES BID Montelukast [Singulair] 10 mg PO HS Estradiol/Norethindrone Acet [Activella 1 mg-0.5 mg Tablet] 1 tab PO DAILY Omeprazole [PriLOSEC] 40 mg PO BID Ozempic (Unknown Dose) 1 dose SQ TH Discontinued Niacin 500 mg PO HS Discharge Medication List 5-Hydroxytryptophan (5-Htp) [5-Htp] 100 mg PO HS 02/02/25 [History] Acetaminophen Tab [Tylenol] 1,000 mg PO Q6HR PRN 02/02/25 [History] Ascorbic Acid [Vitamin C] 500 mg PO BID 02/02/25 [History] Biotin W/Keratin 10,000mg 1 tab PO DAILY 02/02/25 [History] Carboxymethylcellulose Sodium [Refresh Tears] 1 drop BOTH EYES DAILY 02/02/25 [History] Carboxymethylcellulose Sodium [Refresh Tears] 1 drop BOTH EYES QID PRN 02/02/25 [History] Cyanocobalamin (Vitamin B-12) [Vitamin B-12] 1,000 mcg PO DAILY 02/02/25 [History] Estradiol/Norethindrone Acet [Activella 1 mg-0.5 mg Tablet] 1 tab PO DAILY 02/02/25 [History] Fexofenadine HCl [Zoe Allergy] 180 mg PO DAILY 02/02/25 [History] Fluticasone Nasal [place] [Flonase Nasal [place]] 1 spray EA NOSTRIL DAILY 02/02/25 [History] Glucosam/Ar-Msm1/C/Carlos/Bosw [Glucosamine-Chondroitin Tablet] 1 tab PO BID 02/02/25 [History] Lisinopril-Hctz 20-12.5 mg [Zestoretic 20-12.5] 1 tab PO DAILY 02/02/25 [History] Magnesium 200 mg PO HS 02/02/25 [History] Montelukast [Singulair] 10 mg PO HS 02/02/25 [History] Multivitamins, Thera [Multivitamin (formulary)] 1 tab PO DAILY 02/02/25 [History] [place]-3/Dha/Epa/Fish Oil [Fish Oil 500 mg Softgel] 1 cap PO DAILY 02/02/25 [History] Omeprazole [PriLOSEC] 40 mg PO BID 02/02/25 [History] Oxybutynin [Oxytrol For Women] 1 patch TRANSDERM Q96H 02/02/25 [History] Ozempic (Unknown Dose) 1 dose SQ TH 02/02/25 [History] Prasterone (Dhea) [Dhea] 50 mg PO DAILY 02/02/25 [History] Psyllium Husk [Metamucil] 0.4 gm PO DAILY 02/02/25 [History] Rizatriptan Benzoate 10 mg PO DAILY PRN 02/02/25 [History] Sertraline [Zoloft] 100 mg PO DAILY 02/02/25 [History] Turmeric Root Extract [Turmeric] 500 mg PO DAILY 02/02/25 [History] Vitamin D3 125mcg + K2 90mcg 1 tab PO DAILY 02/02/25 [History] Zinc Gluconate [Zinc] 50 mg PO DAILY 02/02/25 [History] cycloSPORINE 0.05% OPHTH SOLN [Restasis] 1 applicator BOTH EYES BID 02/02/25 [H istory] Apixaban [Eliquis] 5 mg PO BID 30 Days #60 tab 02/04/25 [Rx] Atorvastatin [Lipitor] 40 mg PO DAILY 30 Days #30 tab 02/04/25 [Rx] Metoprolol Succinate (ER) [Toprol XL] 75 mg PO DAILY 30 Days #30 tab 02/04/25 [Rx] Follow up Appointment(s)/Referral(s): Huber Santiago MD [STAFF PHYSICIAN] - 1 Week Addison Mcclure MD [Primary Care Provider] - 1-2 days Patient Instructions/Handouts: Apixaban (By mouth), A-fib (Atrial Fibrillation) (DC) Activity/Diet/Wound Care/Special Instructions: Activity: As tolerated. Diet: Heart healthy and carb consistent diet. Special Instructions: Take all of your medications as directed and remember to keep all of your doctor's appointments and follow-up as needed. You are also being discharged home on a blood thinner, Eliquis. This is very important to take daily as directed until otherwise advised by your sewage plant supervisor-Dr. Santiago. Being that you are being placed on a blood thinner it is very important to watch for any signs of bleeding and notify your doctor immediately if you notice any bleeding. Recommend avoidance of any and all alcohol use while on antivoagulants. It is also important to remove any trip hazards such as rugs or loose extension cords from your home to prevent unnecessary falls and if you do experience a fall or head injury, it is extremely important to be evaluated by a medical provider immediately to ensure no internal bleeding. Thank you for allowing us to participate in your care, it was truly a pleasure having you for our patient!!! Discharge Disposition: HOME SELF-CARE
== END 2025-02-04 10:38 | disposition home or self-care (01) ==
LOC: EC 11:48 → 3SCARD 14:48
PROVIDERS: ADMIT Student in an Organized Health Care Education/Training Program; ATTEND Student in an Organized Health Care Education/Training Program
DX: I48.0 Paroxysmal atrial fibrillation (principal); I10 Essential (primary) hypertension; K21.9 Gastro-esophageal reflux disease without esophagitis; E78.5 Hyperlipidemia, unspecified; G43.909 Migraine, unspecified, not intractable, without status migrainosus; R79.89 Other specified abnormal findings of blood chemistry; Z79.85 Long-term (current) use of injectable non-insulin antidiabetic drugs; Z79.899 Other long term (current) drug therapy; Z88.1 Allergy status to other antibiotic agents; Z86.79 Personal history of other diseases of the circulatory system
CPT/HCPCS: 96376; 96368 ×2; 96365; 96366 ×3; 99291; 36415; 93005; 84439; 80061; 80053; 83735; 84443; 84484; 85025; 85610; 85730 ×2; 71046; G0378 ×3; J1644 ×3; J1163 ×2